=== PATIENT | male | born 1945 | race Caucasian/White ===

== ENCOUNTER → 2018-01-24 | Outpatient (CLI) | payer MEDICARE, OTHER | END | disposition home or self-care (01) | LOC: CFH 08:05 | PROVIDERS: ATTEND Nurse Practitioner Family | DX: K21.9 Gastro-esophageal reflux disease without esophagitis (principal); K56.609 Unspecified intestinal obstruction, unspecified as to partial versus complete obstruction; K44.9 Diaphragmatic hernia without obstruction or gangrene; K59.00 Constipation, unspecified | CPT/HCPCS: 74245 ==

== ENCOUNTER 2019-07-24 07:40 | Outpatient (CLI) | payer MEDICARE, OTHER ==
[~2019-07-24 07:40] MED LIST: APIX2.5T PO; AZIT500T10 PO; FLUT1DIS5 IH; OMEP20TA62 PO; REGADENOSON 0.4 MG/5 ML SYRINGE ONE; TELM20TA PO
== END 2019-07-24 23:59 | disposition home or self-care (01) ==
LOC: CFH 07:40
PROVIDERS: ATTEND Internal Medicine Cardiovascular Disease
DX: I99.8 Other disorder of circulatory system (principal); I48.0 Paroxysmal atrial fibrillation; I10 Essential (primary) hypertension
CPT/HCPCS: 78452; 93017; A9502; J2785

== ENCOUNTER 2019-09-21 09:39 | Day surgery (SDC) | payer MEDICARE, OTHER ==
[~2019-09-21] VITALS: Ht 180.3 cm; Wt 98.6 kg
[~2019-09-21 09:39] MED LIST changes: -REGADENOSON 0.4 MG/5 ML SYRINGE ONE
[2019-09-21] MEDS ORDERED: SODIUM CHLORIDE 0.9% 1,000 ML IV SCH ×2 (09:55→11:23)
[2019-09-21] MEDS ORDERED: MIDAZOLAM 1 MG/ML, 5ML ONE (10:09)
[2019-09-21] MEDS ORDERED: HEPARIN 1,000 UNITS/ML, 10ML ONE (10:09)
[2019-09-21] MEDS ORDERED: LIDOCAINE-MPF 1%, 5ML ONE (10:09)
[2019-09-21] MEDS ORDERED: FENTANYL PF 100 MCG/2ML ONE ×2 (10:09→10:23)
[2019-09-21] MEDS ORDERED: BIVALIRUDIN 250 MG ONE (10:09)
[2019-09-21] MEDS ORDERED: VERAPAMIL 2.5 MG/ML, 2ML ONE (10:09)
[2019-09-21 10:26] VITALS: BP 126/77
[2019-09-21] MEDS ORDERED: PLEASE ENTER HEIGHT AND WEIGHT MC SCH (10:30)
[2019-09-21 10:35] LABS: BASOPHILS # (AUTO) 0.03 x10^3/uL (0-0.1); BASOPHILS % (AUTO) 1 % (0-1); EOSINOPHILS # (AUTO) 0.09 x10^3/uL (0-0.4); EOSINOPHILS % (AUTO) 2 % (1-7); LYMPHOCYTES # (AUTO) 1.15 x10^3/uL (1-3.4); LYMPHOCYTES % (AUTO) 23 % (22-44); MD NO; MEAN CORPUSCULAR HEMOGLOBIN 21.6 pg (27.5-34.5); MEAN CORPUSCULAR HGB CONC 32.2 g/dL (33.2-36.2); MEAN CORPUSCULAR VOLUME 67.1 fL (81-97); MEAN PLATELET VOLUME 7.9 fL (7.4-10.4); MONOCYTES # (AUTO) 0.53 x10^3/uL (0.2-0.8); MONOCYTES % (AUTO) 11 % (2-9); NEUTROPHILS # (AUTO) 3.23 x10^3/uL (1.8-6.8); NEUTROPHILS % (AUTO) 64 % (42-75); PLATELET COUNT 266 x10^3/uL (130-400); RED BLOOD COUNT 6.12 x10^6/uL (4.38-5.82); RED CELL DISTRIBUTION WIDTH 16.4 % (9.4-14.8)
[2019-09-21] MEDS ORDERED: FLUT1DIS3 INH (10:37)
[2019-09-21] MEDS ORDERED: FLAX10004 PO (10:37)
[2019-09-21] MEDS ORDERED: TELM1TAB PO (10:37)
[2019-09-21] MEDS ORDERED: METO25TA91 PO (10:37)
[2019-09-21] MEDS ORDERED: ALBU18HF INH (10:37)
[2019-09-21] MEDS ORDERED: VIT1TABL34 PO (10:37)
[2019-09-21 10:41] LABS: ANION GAP 7 mmol/L (5-15); CALCIUM 8.9 mg/dL (8.5-10.1); CHLORIDE 98 mmol/L (98-107); CREATININE 0.99 mg/dL (0.7-1.3)
[2019-09-21] MEDS ORDERED: LIDOCAINE 2%, 20ML ONE (11:04)
[2019-09-21] MEDS ORDERED: FLEC50TA25 PO (11:22)
== END 2019-09-21 15:09 | disposition home or self-care (01) ==
LOC: CACL 09:39
PROVIDERS: ATTEND Internal Medicine Cardiovascular Disease
DX: I48.0 Paroxysmal atrial fibrillation (principal); R07.89 Other chest pain; R00.1 Bradycardia, unspecified; I10 Essential (primary) hypertension; I25.5 Ischemic cardiomyopathy; J44.9 Chronic obstructive pulmonary disease, unspecified; Z79.01 Long term (current) use of anticoagulants; Z79.899 Other long term (current) drug therapy; Z72.89 Other problems related to lifestyle
CPT/HCPCS: 36415; 80048; 85025; 93458; 99156; C1760; C1769; C1894; J1644; J2250; J3010; Q9967; J0583